=== PATIENT | female | born 2005 | race Hispanic/Latino ===

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

== ENCOUNTER 2025-05-30 20:35 | Emergency (ER) | payer OTHER ==
[2025-05-30 21:17] LABS: #Basophils Less than 0.03 10x3/uL (0.0-0.2); #Eosinophils 0.12 10x3/uL (0.0-0.7); #Monocytes 0.67 10x3/uL (0.11-0.59); #Neutrophils 6.61 10x3/uL (1.40-6.50); %Basophils 0.2 % (0.0-1.0); %Eosinophils 1.3 % (0.0-10.0); %Lymphocytes 17.3 % (28.0-48.0); %Monocytes 7.4 % (0.0-4.0); %Neutrophils 73.5 % (31.0-61.0); Hematocrit 36.8 % (36.0-47.0); Hemoglobin 11.9 g/dL (12.0-16.0); Mean Corpuscular Hemoglobin 27.9 pg (25.0-35.0); Mean Corpuscular Volume 86.4 fL (78.0-98.0); Platelet Count 227 10x3/uL (130-400); Red Blood Cell (RBC) Count 4.26 mill/uL (4.00-5.20); White Blood Cell (WBC) Count 9.01 10x3/uL (4.8-10.8)
[2025-05-30 21:25] LABS: BHCG - Serum Negative (NEGATIVE); Pregs Control Background? CLEAR/WHITE (CLR/WHITE); Pregs Control Bar Appear? YES (CONTROL BAR)
[2025-05-30 21:34] LABS: ALT (SGPT) 11 U/L (Less than 34); AST (SGOT) 13 U/L (11-34); Albumin 4.1 g/dL (3.1-4.5); Alkaline Phosphatase 62 U/L (40-100); Anion Gap 12 mmol/L (10-20); BUN (Urea Nitrogen) 7 mg/dL (7.0-18.7); Bilirubin, Total 0.2 mg/dL (0.3-1.2); Calc. Creatinine Clearance 0 mL/min (70-130); Calcium 8.7 mg/dL (7.8-10.44); Carbon Dioxide 22 mmol/L (22-29); Chloride 109 mmol/L (98-107); Globulin 3.1 g/dL (2.4-3.5); Glucose 105 mg/dL (70-105); Lipase 181 U/L (8-78); Potassium 3.8 mmol/L (3.5-5.1); Sodium 139 mmol/L (136-145)
[2025-05-31 11:26] LABS: Chlamydia by PCR, Vaginal Swab DETECTED (NotDetected); GC by PCR, Vaginal Swab Not Detected (NotDetected)
== END 2025-05-31 00:04 | disposition home or self-care (01) ==
LOC: ERS 20:35
DX: N76.0 Acute vaginitis (principal); B96.89 Other specified bacterial agents as the cause of diseases classified elsewhere
CPT/HCPCS: 76856; 80053; 83690; 84703; 85025; 87480; 87491; 87510; 87591; 87660; 93976